=== PATIENT | female | born 1980 | race Caucasian/White ===

== ENCOUNTER 2022-12-19 12:23 | Observation (INO) | payer MEDICAID, OTHER ==
[~2022-12-19] VITALS: Ht 160 cm; Wt 71.7 kg
[2022-12-19] MEDS ORDERED: RHO(D) IMMUNE GLOBULIN 300 MCG/SYR IM NR (14:30)
== END 2022-12-19 15:04 | disposition home or self-care (01) ==
LOC: L&D 12:23 → 8 EST LDRP 12:59
PROVIDERS: ADMIT Obstetrics & Gynecology; ATTEND Obstetrics & Gynecology
DX: O36.0930 Maternal care for other rhesus isoimmunization, third trimester, not applicable or unspecified (principal); Z3A.30 30 weeks gestation of pregnancy
CPT/HCPCS: 36415; 59025; 86886; 90384; 96372; G0378; J2791